=== PATIENT | male | born 2005 | race Caucasian/White ===

== ENCOUNTER 2025-01-30 14:56 | Emergency (ER) | payer SELFPAY ==
--- OUTSIDE RECORDS SUMMARY | 2025-01-27 15:15 | XMS_ITS | Continuity of Care Document ---
Author Organization [facility] Address [facility] [address] [place] [address]- Care Team Providers Care Career Development Counselor Name Role Phone Juvenal Sylvester Primary Care Physician Encounter(s) 01/27/25 [facility] [address] [place] [address]- [place] Attending Physician: Juvenal Sylvester Encounter Type: Outpatient 06/26/11 - 06/26/11 [facility] [address] [place] [address]- [place] Attending Physician: Juvenal Sylvester Encounter Type: Outpatient Social History Social History Type Response Sex Sex Representation Male (finding) Patient Care team information Care Team Personnel Name: Juvenal Sylvester Position: EMR Mid-Level Access (Supervised) Member Role: Primary Care Physician Address: [facility] [address] P: [place]: [place] [address]- HC Telecom: Insurance Providers Guarantor name: VANDANA Health Plan Information #: 1 Payer: [facility] - Insurance Organization Payer Identifier: NA Member Number: NA Group Number: NA Subscriber Identifier: NA Relationship to Subscriber: self Coverage Type: PRIVATE HEALTH INSURANCE Coverage Verification Date: VANDANA Telecom: VANDANA Address: NA
[2025-01-30 15:01] VITALS: BP 128/76; PULSE 92; RESP 16; TEMP 36.8; O2SAT 98; BMI 24.3
--- NOTE | 2025-01-30 15:06 | XRR_ITS ---
PROCEDURE INFORMATION: Exam: XR Chest Exam date and time: 01/30/2025 3:22 PM Age: 19 years old Clinical indication: Shortness of breath; Additional info: Cough, hard time breathing TECHNIQUE: Imaging protocol: Radiologic exam of the chest. Views: 1 view. COMPARISON: No relevant prior studies available. FINDINGS: Airway: Trachea is midline in position. Lungs: No focal consolidation or other acute appearing pulmonary opacity. Pleural spaces: No significant pleural effusion. No pneumothorax. Heart/Mediastinum: The heart size is normal. The mediastinal contours are smooth. Bones/joints: Very minimal scoliosis. Osseous structures are otherwise unremarkable. XR/XR chest 1V portable [id number] IMPRESSION: No acute findings within the chest.
--- NOTE | 2025-01-30 15:21 | XRR_ITS ---
PROCEDURE INFORMATION: Exam: XR Soft Tissue Neck Exam date and time: 01/30/2025 3:23 PM Age: 19 years old Clinical indication: Other: Cough; Additional info: Laryngospasms, coughing white phlegm TECHNIQUE: Imaging protocol: Radiologic exam of the soft tissues of the neck. COMPARISON: CR (CHEST, ) 01/30/2025 3:22 PM FINDINGS: Airway: There is mild fullness of the epiglottis which may correspond to changes of mild epiglottitis. Clinical correlation is recommended. Vallecula and piriform sinuses appear widely patent. Subglottic airway is patent. There does appear to be potential slight narrowing of the subglottic airway on the AP view. Soft tissues: No prevertebral soft tissue swelling. No opaque foreign body. Bones/joints: Osseous structures are unremarkable. Lungs: Visualized portion of the right and left lung are clear. Other findings: Heart size is normal. XR/XR soft tissue neck [id number] IMPRESSION: Mild enlargement of the epiglottis. There is question of slight narrowing of the subglottic airway. CT scan of the neck could be considered for further evaluation.
--- NOTE | 2025-01-30 15:32 | ED_ITS ---
HPI - URI/Sore Throat 2 General: Chief Complaint: Upper Respiratory Infection Stated Complaint: Hard time breath Coughing Time Seen by Provider: 01/30/25 15:08 Source: patient Mode of arrival: ambulatory Limitations: no limitations History of Present Illness: The patient is a 19-year-old male presenting to the emergency department with several days of intermittent coughing fits and sensation of throat closure that began after playing a dirty saxophone. States that he found the saxophone, which was his brothers, and did not clean it before using it. He notes that he was initially seen in urgent care due to onset of what he is calling laryngeal spasms, and was diagnosed with laryngitis and was treated with doxycycline and metronidazole, stating that he was told metronidazole to cover for fungal infections. Also has been using albuterol inhaler. He notes that his condition has gotten worse and coughing fits of gotten worse, as he will choke on his phlegm. He states that the phlegm has been very chunky and yellow/whitish in appearance. At this time he does not report any shortness of breath, but has notable dysphonia. He is not reporting any throat pain, fevers, chest pain, dysphagia, drooling, or true respiratory distress. He remains able to speak in full sentences and feels that his airway is patent at this time. He does not report any recent illness, sick contacts, or history of asthma. Oropharyngeal exam reportedly is normal. Lung sounds have been normal. No history of immunocompromise. His vitals are stable at this time, 98% SpO2 on room air. MD elicited complaint: cough and other (Throat spasms) Onset (ago): day(s) Consistency: constant and progressively worsening Description of mucous: yellow and other (White/chunky) Able to tolerate fluids by mouth: Yes Context: other (Played dirty saxophone) Associated symptoms: Deny abdominal pain, chills, chest pain, diarrhea, ear or mastoid pain, fever(s), headache(s), nausea or vomiting Related Data Previous Rx's ?Medication ?Instructions ?Recorded fluconazole 100 mg tablet 100 mg PO DAILY 14 days #14 tabs 01/30/25 methocarbamol 750 mg tablet 750 mg PO Q8H 5 days #15 t abs 01/30/25 prednisone 20 mg tablet 60 mg (3 x 20 mg) PO ONCE 5 days 01/30/25 #15 tabs Allergies Allergy/AdvReac Type Severity Reaction Status Date / Time peanut Allergy ALGY-Anaphy Verified 01/26/25 23:47 laxis Pork/Porcine Containing Allergy ALGY-Anaphy Verified 01/26/25 23:47 Products laxis shellfish derived Allergy ALGY-Anaphy Verified 01/26/25 23:47 laxis Review of Systems 2 General: Reports: 10 or more systems reviewed and unremarkable except in HPI and below Const: Denies: fever(s), chills or fatigue Eyes: Denies: change in vision ENMT: Reports: hoarseness and other (Sensation of throat closure); Denies: throat pain, ear or mastoid pain or nasal discharge Card: Denies: chest pain, palpitations, swelling of feet/ankles or lightheadedness Resp: Reports: productive cough; Denies: dyspnea, wheezing or hemoptysis GI: Denies: abdominal pain, nausea, vomiting, diarrhea or constipation : Denies: flank pain, difficulty urinating, dysuria or urinary frequency Musc: Denies: neck pain, back pain or joint pain Skin/Breast: Denies: rash Neuro: Denies: headache(s), numbness in extremities or weakness in extremities Physical Exam 2 Const: COMMON NORMALS: no acute distress and no limitations GENERAL APPEARANCE: cooperative, comfortable and well developed O RIENTATION/CONSCIOUSNESS: Yes awake OTHER: Nontoxic-appearing, no acute distress HENMT: COMMON NORMALS: normocephalic, atraumatic and hearing grossly normal bilaterally HEAD & SCALP: normocephalic and atraumatic THROAT: posterior oropharynx normal, tonsils normal and uvula midline Eye: COMMON NORMALS: Equal, round and reactive pupils present, EOMs intact bilaterally and conjunctivae normal CONJUNCTIVA: Yes conjunctivae normal P UPIL: Yes Equal, round and reactive pupils present Neck/C-Spine: COMMON NORMALS: full ROM, supple and no JVD Resp: COMMON NORMALS: normal respiratory effort, No retractions, No use of accessory muscles and clear to auscultation bilaterally EFFORT & INSPECTION: Yes able to speak in complete sentences AUSCULTATION: clear to auscultation bilaterally OTHER: No respiratory distress but obvious dysphonia, able to speak in complete sentences Cardio: COMMON NORMALS: no JVD, regular rate, regular rhythm, No clicks present (Cardio), No murmurs present (Cardio) and No rub (Cardio) RATE: r egular rate RHYTHM: regular rhythm Extremity: COMMON NORMALS: normal to inspection, full ROM and capillary refill normal Skin: COMMON NORMALS: no rashes or lesions noted GENERAL SKIN EXAM: no rashes or lesions noted Course 2 Vital Signs: Vital signs: Vital Signs Temperature 98.3 F 01/30/25 15:01 Pulse Rate 71 01/30/25 19:54 Respiratory Rate 16 01/30/25 15:01 Blood Pressure 126/84 01/30/25 19:54 Pulse Oximetry 95 01/30/25 19:54 Oxygen Delivery Me thod Nasal Cannula 01/30/25 19:54 MDM - URI/Sore Throat Medical Decision Making Patient presented for complaints of intermittent coughing episodes and sensation of throat closing. Of note he used a saxophone that he had found, without cleaning it, and concerned that possibly acquired fungal or bacterial infection. Symptoms began about a day after this occurred and he previously had seen urgent care last week where he was prescribed antibiotics, doxycycline, and metronidazole, and was told metronidazole was for a fungal infection. He has also been using inhaled albuterol and prednisone. On exam airway patent, notable dysphonia however no signs or symptoms of impending respiratory compromise. His vitals have been stable here at the ED course, and he has had intermittent episodes of coughing. Notable that the phlegm was chunky and white/yellow. Soft tissue neck x-ray showing mild enlargement of epiglottis but recommending CT scan for further evaluation of this. The CT did not show any signs of epiglottitis, but there was soft tissue enlargement that was causing a mild amount of airway narrowing. Otherwise lab workup normal. Working diagnosis is candidal laryngitis that he has been inadequately treated for, with his airway remaining patent, will refer outpatient ENT and no need for admission at this time. He will have his dose of prednisone increased as he was only taking 20 mg, he will take 60 mg. Also he is told to return with any new or worsening. Patient and mom agree with this plan at this time. Discharged home. Lab Data 01/30/25 15:31 01/30/25 15:31 Radiology Impressions Chest X-Ray 01/30/25 15:06 IMPRESSION: No acute findings within the chest. Soft Tissue Neck X-Ray 01/30/25 15:21 IMPRESSION: Mild enlargement of the epiglottis. There is question of slight narrowing of the subglottic airway. CT scan of the neck could be considered for further evaluation. ADDENDUM: 01/30/25 1604 COMMENT: THIS REPORT CONTAINS FINDINGS THAT MAY BE CRITICAL TO PATIENT CARE. The exam findings were verbally communicated by me to MARYCRUZ JARRELL via telephone conference at 4:02 PM [employer] INSPECTOR on 01/30/2025. The findings were acknowledged and understood. Neck CT 01/30/25 16:28 IMPRESSION: 1. There is slight asymmetric enlargement and slight enhancement of the soft tissues at the level of the mid glottis which slightly narrows the airway. The airway remains patent. Vocal cords appear symmetric. No focal fluid collection or abscess. No suspicious mass. Given patient's symptoms, ENT consultation and direct visualization is recommended. 3. Epiglottis appears normal. There is no enlargement of the epiglottis or evidence of epiglottitis. Laboratory Results WBC 12.12 10^3/uL (4.5-13.0) 01/30/25 15:31 RBC 5.49 10^6/uL (3.85-5.65) 01/30/25 15:31 Hgb 16.40 g/dL (13.2-15.6) H 01/30/25 15: Hct 48.6 % (37-53) 01/30/25 15: MCV 88.5 fl (82-101) 01/30/25 15: MCH 29.9 pg (27-33) 01/30/25 15: MCHC 33.7 g/dL (30-55) 01/30/25 15: RDW 11.9 % (12.1-15.1) L 01/30/25 15: Plt Count 315 10^3/cmm (157-399) 01/30/25 15: MPV 8.7 fL (7.4-10.4) 01/30/25 15: Neut % (Auto) 77.6 % 01/30/25 15: Lymph % (Auto) 13.4 % 01/30/25 15:31 [place] % (Auto) 8.3 % 01/30/25 15: Eos % (Auto) 0.1 % 01/30/25 15:31 Baso % (Auto) 0.1 % 01/30/25 15: Neut # (Auto) 9.41 10^3/uL (1.8-8.0) H 01/30/25 15: Lymph # (Auto) 1.6 10^3/uL (1.5-6.5) 01/30/25 15:31 [place] # (Auto) 1.0 10^3/uL (0.2-0.9) H 01/30/25 15: Eos # (Auto) 0.0 10^3/uL (0.0-0.8) 01/30/25 15: Baso # (Auto) 0.0 10^3/uL (0.0-0.1) 01/30/25 15: Nucleated RBC % (auto) 0 % 01/30/25 15: Nucleated RBCs # 0.0 /100WBC 01/30/25 15:31 Sodium 140 mmol/L (136-145) 01/30/25 15: Potassium 4.3 mmol/L (3.5-5.1) 01/30/25 15: Chloride 102 mmol/L (98-107) 01/30/25 15: Carbon Dioxide 25 mmol/L (22-29) 01/30/25 15:31 Anion Gap 17.3 (5-19) 01/30/25 15:31 BUN 12 mg/dL (6-20) 01/30/25 15: Creatinine 0.8 mg/dL (0.7-1.2) 01/30/25 15:31 GFR Calculation 124.5 mL/min (90-130) 01/30/25 15:31 Glucose 116 mg/dL (65-115) H 01/30/25 15:31 Calculated Osmolality 291 mOsm/kg (285-295) 01/30/25 15: Calcium 9.4 mg/dL (8.5-10.5) 01/30/25 15:31 Total Bilirubin 0.4 mg/dL (0.15-1.2) 01/30/25 15:31 AST 33 U/L (0-40) 01/30/25 15:31 ALT 22 U/L (0-41) 01/30/25 15:31 Alkaline Phosphatase 88 U/L (40-130) 01/30/25 15:31 Total Protein 8.0 g/dL (6.6-8.7) 01/30/25 15:31 Albumin 4.9 g/dL (3.5-5.2) 01/30/25 15:31 Globulin 3.1 g/dL (1.3-4.6) 01/30/25 15:31 All radiology interpretation(s) finalized by discharge Discharge Plan Discharge Patient Disposition: Home Clinical Impression: Gladis laryngitis Condition: Stable Prescriptions: New fluconazole 100 mg tablet 100 mg PO DAILY 14 Days Qty: 14 0RF methocarbamol 750 mg tablet 750 mg PO Q8H 5 Days Qty: 15 0RF prednisone 20 mg tablet 60 mg PO ONCE 5 Days Qty: 15 0RF Discharge Orders: Discharge ED (Routine); Ordered 01/30/25 Ordered By: Marycruz Jarrell Patient Instructions: Patient Portal & Ashley Instructions Activity Restrictions/Additional Instructions: Candidal Laryngitis Discharge You have been diagnosed with candidal laryngitis (a yeast infection of the voice box). You received a loading dose of fluconazole (Diflucan) in the emergency department and will continue treatment at home. Medication Instructions: - Take fluconazole 100 mg by mouth once daily for 2 weeks. You may take it with or without food. - You received a higher dose (200 mg) in the emergency department to start treatment. - Finish the entire course, even if you start feeling better, to prevent relapse. - Metronidazole and doxycycline have been stopped; do not take these unless directed otherwise. - Take the prednisone as prescribed. What to Expect: - Symptoms should begin to improve within several days, but continue medication for the full 2 weeks. - Mild side effects may include headache, stomach upset, or dizziness. If these are severe or persistent, contact your doctor. Precautions: - Do not drive or operate heavy machinery if you feel dizzy or have seizures. - If you have kidney problems, let your doctor know, as fluconazole may need adjustment. - Rarely, fluconazole can affect your adrenal glands. If you feel very weak, dizzy, or faint, seek medical attention. Strict Return Precautions: Return to the emergency department immediately if you experience: - Difficulty breathing, noisy breathing, or severe throat swelling - Trouble swallowing or drooling - High fever not improving - Severe pain or inability to speak - New rash, severe headache, or confusion Follow-Up: - If your symptoms do not improve or get worse after several days, you will be referred to an ear, nose, and throat (ENT) specialist for further evaluation. - Please return immediate to the emergency department with any acute worsening. Questions or Concerns: - Contact your healthcare provider if you have any questions about your medication or symptoms. Take all medications as directed and follow up as scheduled. Print Language: Azeri Coding Level of Care Code ED [employer]obotanist for Desiree York
[2025-01-30 15:36] LABS: Hematocrit 48.6 % (37-53); Hemoglobin 16.40 g/dL (13.2-15.6); Mean Corpuscular HGB Conc 33.7 g/dL (30-55); Mean Corpuscular Hemoglobin 29.9 pg (27-33); Mean Corpuscular Volume 88.5 fl (82-101); Nucleated Red Blood Cells % 0 %; Platelet Count 315 10^3/cmm (157-399); Red Blood Count 5.49 10^6/uL (3.85-5.65); White Blood Count 12.12 10^3/uL (4.5-13.0)
--- NOTE | 2025-01-30 16:28 | CTR_ITS ---
PROCEDURE INFORMATION: Exam: CT Neck With Contrast Exam date and time: 01/30/2025 5:01 PM Age: 19 years old Clinical indication: Lymphangitis, acute; Prior surgery; Surgery date: 6+ months; Surgery type: Tonsils and adenoids; Additional info: XR findings, cough, laryngospasms TECHNIQUE: Imaging protocol: Computed tomography of the neck with contrast. Radiation optimization: All CT scans at this facility use at least one of these dose optimization techniques: automated exposure control; mA and/or kV adjustment per patient size (includes targeted exams where dose is matched to clinical indication); or iterative reconstruction. Contrast material: OMNIPAQUE 350; Contrast volume: 80 ml; Contrast route: INTRAVENOUS (IV); COMPARISON: CR (NECK, ) 01/30/2025 3:23 PM RADIATION DOSE METRICS: Total DLP (mGy-cm): 254.99 FINDINGS: Brain: Visualized portion of the brain appears unremarkable. Prominent vascular structure extending anterior to the right temporal lobe more likely corresponds to a prominent draining vein. This is not well evaluated on this exam. Mastoid air cells: Mastoid air cells are clear. Salivary glands: Major salivary glands appear symmetric. Pharynx: Slight nodular appearance of the lingual tonsils. No evidence of acute tonsillitis. No focal fluid collection or mass. [place] tonsils appear symmetric. Vallecula and piriform sinuses are patent. Parapharyngeal fat planes are well preserved. There is fullness of the posterior nasopharyngeal soft tissues. No focal fluid collection or mass. Larynx: The epiglottis is normal in size. There is no enlargement of the epiglottis or evidence of epiglottitis. Thyroid: Normal. No enlarged or calcified nodules. Trachea: Trachea is midline in position and widely patent. Lungs: Visualized portion of the upper right and left lung are clear. Lymph nodes: No suspicious cervical chain lymphadenopathy. No enlarged or suspicious upper mediastinal lymph nodes. Vasculature: Carotid arteries are widely patent. Vertebral arteries are patent. Right and left jugular vein are patent. Bones/joints: Osseous structures are unremarkable. Mild mucosal thickening within the ethmoid air cells and within the inferior aspect of the left maxillary sinus. There are no fluid levels. Soft tissues: No neck mass. There is asymmetric enlargement and slight enhancement of the soft tissues at the level of the mid glottis which slightly narrows the airway. The airway remains patent. Vocal cords appear symmetric. No focal fluid collection or abscess. No suspicious mass. CT/CT neck w con* [id number] IMPRESSION: 1. There is slight asymmetric enlargement and slight enhancement of the soft tissues at the level of the mid glottis which slightly narrows the airway. The airway remains patent. Vocal cords appear symmetric. No focal fluid collection or abscess. No suspicious mass. Given patient's symptoms, ENT consultation and direct visualization is recommended. 3. Epiglottis appears normal. There is no enlargement of the epiglottis or evidence of epiglottitis.
[2025-01-30 16:54] LABS: Alanine Aminotransferase 22 U/L (0-41); Albumin Level 4.9 g/dL (3.5-5.2); Alkaline Phosphatase 88 U/L (40-130); Anion Gap 17.3 (5-19); Aspartate Amino Transferase 33 U/L (0-40); Blood Urea Nitrogen 12 mg/dL (6-20); Calcium 9.4 mg/dL (8.5-10.5); Carbon Dioxide 25 mmol/L (22-29); Chloride 102 mmol/L (98-107); Creatinine Clr Calc Pharmacy 147.1957; Globulin 3.1 g/dL (1.3-4.6); Glucose 116 mg/dL (65-115); Osmolality Calculated 291 mOsm/kg (285-295); Potassium 4.3 mmol/L (3.5-5.1); Sodium 140 mmol/L (136-145); Total Protein 8.0 g/dL (6.6-8.7)
[2025-01-30] MEDS: iohexol 350 mg/mL 500 mL Btl (per mL) IV (17:09)
[2025-01-30] MEDS: orphenadrine 30 mg/mL Inj 2 mL 60 MG IVP (18:35)
[2025-01-30 18:39] VITALS: BP 151/90; PULSE 70; O2SAT 99
[2025-01-30 19:54] VITALS: BP 126/84; PULSE 71; O2SAT 95
== END 2025-01-30 19:56 | disposition home or self-care (01) ==
PROVIDERS: Emergency Provider Physician Assistant
DX: J04.0 Acute laryngitis (principal)
CPT/HCPCS: 36415; 70360; 70491; 71045; 80053; 85025; 87070; 96374; 96376; 99285; J1100; J2360; J9999

== ENCOUNTER 2025-01-31 21:40 | Emergency (ER) | payer SELFPAY ==
--- OUTSIDE RECORDS SUMMARY | 2025-01-29 23:59 | XMS_ITS | Continuity of Care Document ---
Author Organization [facility] Address [facility] [address] [place] [address]- Care Team Providers Care Auxiliary Engineer Name Role Phone Juvenal Sylvester Primary Care Physician Encounter 01/27/25 - 01/29/25 [facility] [address] [facility] [address] [place] [address]- Encounter Diagnosis Productive cough(Discharge Diagnosis) - 01/27/25 CAP (community acquired pneumonia)(Discharge Diagnosis) - 01/27/25 Attending Physician: Juvenal Sylvester Encounter Type: Outpatient Allergies, Adverse Reactions, Alerts No Known Medication Allergies Substance Criticality Severity Reaction Reaction Severity Status Peanuts Unable to assess criticality High Swelling of throat Active Treatment Plan Extracted from: Title:CAP; productive cough Author:Juvenal Sylvester Date:01/27/25 1. Productive cough (R05.8: Other specified cough) based on pt symptoms and Hx I believe treating for possible pneumonia is appropriate at this time and they are agreeable. Pt receives IM dexamethasone in office to help control congestive symptos and protect his airway and this is well tolerated. he will start course of Doxycycline and metronidazole in order to allow a broad spectrum of coverage. Red flag symptoms are thoroughly discussed. all questions answered. pt may follow up as needed. Ordered: dexamethasone, 8 mg, Intramuscular, once, (Ordered) doxycycline(doxycycline hyclate 100 mg oral tablet), 100 mg= 1 tab(s), Oral, bid, (Ordered) metroNIDAZOLE(metroNIDAZOLE 500 mg oral tablet), 500 mg= 1 tab(s), Oral, bid, (Ordered) predniSONE(predniSONE 20 mg oral tablet), 40 mg= 2 tab(s), Oral, daily, (Ordered) [id number] office o/p new low meets or exceeds 30min (Charge), Quantity: 1, Productive cough CAP (community acquired pneumonia) 2. CAP (community acquired pneumonia) (J18.9: Pneumonia, unspecified organism) as above Ordered: dexamethasone, 8 mg, Intramuscular, once, (Ordered) doxycycline(doxycycline hyclate 100 mg oral tablet), 100 mg= 1 tab(s), Oral, bid, (Ordered) metroNIDAZOLE(metroNIDAZOLE 500 mg oral tablet), 500 mg= 1 tab(s), Oral, bid, (Ordered) predniSONE(predniSONE 20 mg oral tablet), 40 mg= 2 tab(s), Oral, daily, (Ordered) [id number] office o/p new low meets or exceeds 30min (Charge), Quantity: 1, Productive cough CAP (community acquired pneumonia) Medications doxycycline hyclate 100 mg oral tablet = 1 tab(s) ( 100 mg ), Oral, bid, x 7 day(s), # 14 tab(s), 0 Refill(s), Type: Acute, Pharmacy: [facility], 1 tab(s) Oral bid,x7 day(s), , in, 01/27/25 15:20:00 [employer], Height Measured, 162, lb, 01/27/25 15:20:00 [employer], Weight Measured Start Date: 01/27/25 Stop Date: 02/03/25 Status: Ordered Medication Dispense Status: Completed Quantity: 14.0 Unit: tab(s) Total Allowed Fills: 1 Fills Dispensed: 0 Indications: Pneumonia, unspecified organism; Other specified cough; metroNIDAZOLE 500 mg oral tablet = 1 tab(s) ( 500 mg ), Oral, bid, x 7 day(s), # 14 tab(s), 0 Refill(s), Type: Acute, Pharmacy: [facility], 1 tab(s) Oral bid,x7 day(s), , in, 01/27/25 15:20:00 [employer], Height Measured, 162, lb, 01/27/25 15:20:00 [employer], Weight Measured Start Date: 01/27/25 Stop Date: 02/03/25 Status: Ordered Medication Dispense Status: Completed Quantity: 14.0 Unit: tab(s) Total Allowed Fills: 1 Fills Dispensed: 0 Indications: Pneumonia, unspecified organism; Other specified cough; predniSONE 20 mg oral tablet = 2 tab(s) ( 40 mg ), Oral, daily, x 5 day(s), Instructions: take daily in the morning, # 10 tab(s), 0 Refill(s), Type: Acute, Pharmacy: [facility], 2 tab(s) Oral daily,x5 day(s),Instr:take daily in the morning, 68, in, 01/27/25 15:20:00 [employer], Height Measured, 162, lb, 01/27/25 15:20:00 [employer], Weight Measured Start Date: 01/27/25 Stop Date: 02/01/25 Status: Ordered Medication Dispense Status: Completed Quantity: 10.0 Unit: tab(s) Total Allowed Fills: 1 Fills Dispensed: 0 Indications: Pneumonia, unspecified organism; Other specified cough; Problem List Diagnosis Diagnosis Type Effective Dates Health Status Clinical Service Informant Productive cough Discharge Diagnosis 01/27/25 Non-Specified CAP (community acquired pneumonia) Discharge Diagnosis 01/27/25 Non-Specified Vital Signs Most recent to oldest [Reference Range]: 1 Height Measured 68 in (01/27/25 3:20 PM) Weight Measured 162 lb (01/27/25 3:20 PM) Body Mass Index 24.63 kg/m2 (01/27/25 3:20 PM) BSA 1.88 m2 (01/27/25 3:20 PM) Temperature Temporal [97.3-100 DegF] 97. 8 DegF (01/27/25 3:20 PM) Blood Pressure [90-120/60-80 mmHg] 140/8 2mmHg *HI* (01/27/25 3:20 PM) Mean Arterial Pressure 101 mmHg (01/27/25 3:20 PM) Peripheral Pulse Rate [60-100 bpm] 98 bp m (01/27/25 3:20 PM) SpO2 [95 %] 98 % (01/27/25 3:20 PM) Body Mass Index Z-score 0.61 1 (01/27/25 3:20 PM) Body Mass Index Percentile [0-0 %] 73.06 % 2 (01/27/25 3:20 PM) 1Result Comment: ^~:!ZScore Source - CDC 2Result Comment: ^~:!Percentile Source - CDC Social History Social History Type Response Sex Sex Representation Male (finding) Physician Outpatient Note * Juvenal Sylvester: PERFORM Event Display: General Clinic Note (Physician) Authored Date: [id number] Presley Siegel Address: [address] [place] [address] Home Phone:[phone] Sex:Male :2005 [facility] Date [facility] Service:01/27/2025 Chief Complaint cough starting ab a wk ago, then started coughing up flem (very thick and brown), cough became bad enough nose would start bleeding, throat has been closing for ab40 seconds at a time during that time he came breath at all, History of Present Illness Pt presents today w mom present. They state pt has ongoing cough for a little more than a week now which has become very productive of dark yellow and green sputum. At ties he has coughed??hard enough to trigger nose bleeding, has become very hoarse now??and has also experienced what they believe is laryngal spasm which causes a sensation of his throat closing . during these spasms he states he has had a great deal of difficulty breathing and these episodes seem very random and typically last 30-45??seconds or so. No known fevers. They state this all began a couple of days after he got out an old saxophone??and began trying to play it again, and they are concerned he may have contacted latent bacteria or possibly mold from this.?? Review of Systems Constitutional:??no??fever,??no??chills,??no??sweats,??no??weakness Respiratory:??moderate??shortness of breath,??severe??cough Cardiovascular:??no??chest pain Additional ROS info: Except as noted in the above Review of Systems and in the History of Present Illness all other systems have been reviewed and are negative or noncontributory.?? Physical Exam Vitals & Measurements T:??97.8?F??(Temporal Artery)?? HR:??98??(Peripheral)?? BP:??140/82?? SpO2:??98%?? HT:??68??in?? WT:??162??lb?? BMI:??24.63?? General:??alert,??no acute distress. Cardiovascular:??regular??rate and rhythm,??normal??peripheral perfusion. Respiratory: Lungs??CTA, respirations??non-labored. HENT: head is normocephalic w no lymphadenopathy noted; TMs intact and nonerythematous; oropharynx w PND present?? Extremities:??no??deformity,??no??trauma. Neurological:??oriented??x4, LOC??appropriate for age Assessment/Plan 1.??Productive cough (R05.8: Other specified cough) based on pt symptoms and Hx??I believe treating for??possible pneumonia is??appropriate??at this time and??they are agreeable. Pt receives IM dexamethasone in office to help control congestive symptos and protect his airway and this is well tolerated. he will start course of Doxycycline and metronidazole in order to allow a broad spectrum of coverage. Red flag symptoms are thoroughly discussed. all questions answered. pt may follow up as needed.?? Ordered: dexamethasone, 8 mg, Intramuscular, once, (Ordered) doxycycline(doxycycline hyclate 100 mg oral tablet), 100 mg= 1 tab(s), Oral, bid, (Ordered) metroNIDAZOLE(metroNIDAZOLE 500 mg oral tablet), 500 mg= 1 tab(s), Oral, bid, (Ordered) predniSONE(predniSONE 20 mg oral tablet), 40 mg= 2 tab(s), Oral, daily, (Ordered) [id number] office o/p new low meets or exceeds 30min (Charge), Quantity: 1, Productive cough CAP (community acquired pneumonia) ?? 2.??CAP (community acquired pneumonia) (J18.9: Pneumonia, unspecified organism) as above?? Ordered: dexamethasone, 8 mg, Intramuscular, once, (Ordered) doxycycline(doxycycline hyclate 100 mg oral tablet), 100 mg= 1 tab(s), Oral, bid, (Ordered) metroNIDAZOLE(metroNIDAZOLE 500 mg oral tablet), 500 mg= 1 tab(s), Oral, bid, (Ordered) predniSONE(predniSONE 20 mg oral tablet), 40 mg= 2 tab(s), Oral, daily, (Ordered) 12158 office o/p new low meets or exceeds 30min (Charge), Quantity: 1, Productive cough CAP (community acquired pneumonia) ?? PCP/Referring Provider Primary Care Provider (PCP):?Juvenal Sylvester ?NPI# [id number] Referring Provider:?No referring provider recorded for selected visit. Medications dexamethasone, 8 mg, Intramuscular, once doxycycline(doxycycline hyclate 100 mg oral tablet), 100 mg= 1 tab(s), Oral, bid metroNIDAZOLE(metroNIDAZOLE 500 mg oral tablet), 500 mg= 1 tab(s), Oral, bid predniSONE(predniSONE 20 mg oral tablet), 40 mg= 2 tab(s), Oral, daily Allergies Peanuts (High)??Swelling of throat No Known Medication Allergies Electronically Signed on 01/27/25 04:23 PM Juvenal Sylvester Patient Care team information Care Team Personnel Name: Juvenal Sylvester Position: EMR Mid-Level Access (Supervised) Member Role: Primary Care Physician Address: [facility] [address] [place] [address] P: F: [place] [address] Telecom: Insurance Providers Guarantor name: VANDANA Health Plan Information #: 1 Payer: [facility] - Insurance Organization Payer Identifier: VANDANA Member Number: VANDANA Group Number: VANDANA Subscriber Identifier: VANDANA Relationship to Subscriber: self Coverage Type: PRIVATE HEALTH INSURANCE Coverage Verification Date: VANDANA Telecom: VANDANA Address: [place]
[2025-01-31 21:45] VITALS: BP 169/108; PULSE 107; RESP 22; TEMP 36.8; O2SAT 97; BMI 24.3
[2025-01-31] MEDS: methylPREDNISolone sod succ 125 mg/2 mL INJ IVP (21:58)
[2025-01-31] MEDS: diphenhydrAMINE 50 mg/mL SDV 1mL IVP (21:58)
[2025-01-31 22:02] VITALS: BP 169/93; PULSE 109; RESP 36; O2SAT 100
--- NOTE | 2025-01-31 22:06 | XRR_ITS ---
PROCEDURE INFORMATION: Exam: XR Chest Exam date and time: 01/31/2025 10:16 PM Age: 19 years old Clinical indication: Shortness of breath; SOB with stridor TECHNIQUE: Imaging protocol: Radiologic exam of the chest. Views: 1 view. COMPARISON: CR (CHEST, ) 01/30/2025 3:22 PM FINDINGS: Lungs: Unremarkable. No consolidation. Pleural spaces: Unremarkable. No pleural effusion. No pneumothorax. Heart/Mediastinum: Unremarkable. No cardiomegaly. Bones/joints: Unremarkable. XR/XR chest 1V portable [id number] IMPRESSION: No acute findings.
--- NOTE | 2025-01-31 22:06 | XRR_ITS ---
PROCEDURE INFORMATION: Exam: XR Soft Tissue Neck Exam date and time: 01/31/2025 10:07 PM Age: 19 years old Clinical indication: Other: Sob/stridor; Prior surgery; Surgery date: 6+ months; Surgery type: Tonsil/adnenoidectomy; SOB with stridor; Additional info: SOB, stridor TECHNIQUE: Imaging protocol: Radiologic exam of the soft tissues of the neck. COMPARISON: CT neck w con* [id number] 01/30/2025 5:01 PM FINDINGS: Airway: The epiglottis is normal. Soft tissues: The nasopharynx and oropharynx are patent. There is subtle soft tissue attenuation of the level of the glottis, which may correspond to previously described asymmetric soft tissue thickening/enhancement on same day CT neck. No substantial hypopharyngeal distension is noted. Prevertebral soft tissues are within normal limits. Bones/joints: Unremarkable. XR/XR soft tissue neck [id number] IMPRESSION: Suggested mild soft tissue thickening at the mid/subglottic level, which may correspond to same day CT neck findings. Findings are nonspecific. Croup could be considered. Please refer to separately dictated CT neck for further characterization.
[2025-01-31 22:08] VITALS: PULSE 117; RESP 26; O2SAT 98
[2025-01-31 22:24] LABS: Hematocrit 51.4 % (37-53); Hemoglobin 17.50 g/dL (13.2-15.6); Mean Corpuscular HGB Conc 34.0 g/dL (30-55); Mean Corpuscular Hemoglobin 30.1 pg (27-33); Mean Corpuscular Volume 88.3 fl (82-101); Nucleated Red Blood Cells % 0 %; Platelet Count 370 10^3/cmm (157-399); Red Blood Count 5.82 10^6/uL (3.85-5.65); White Blood Count 22.45 10^3/uL (4.5-13.0)
[2025-01-31 22:37] LABS: INR 1.04 (0.8-1.2); Prothrombin Time 14.30 SECONDS (12.1-14.9)
[2025-01-31 22:38] LABS: Partial Thromboplastin Time 27.3 SECONDS (23.9-36.7)
[2025-01-31 22:43] LABS: Lactic Sepsis W/Reflex 3.7 mmol/L (0.5-2.2)
[2025-01-31 22:44] LABS: Alanine Aminotransferase 23 U/L (0-41); Albumin Level 5.0 g/dL (3.5-5.2); Alkaline Phosphatase 91 U/L (40-130); Anion Gap 20.2 (5-19); Aspartate Amino Transferase 28 U/L (0-40); Blood Urea Nitrogen 15 mg/dL (6-20); Calcium 9.6 mg/dL (8.5-10.5); Carbon Dioxide 22 mmol/L (22-29); Chloride 99 mmol/L (98-107); Creatinine Clr Calc Pharmacy 147.1957; Globulin 3.2 g/dL (1.3-4.6); Glucose 136 mg/dL (65-115); Osmolality Calculated 289 mOsm/kg (285-295); Potassium 3.2 mmol/L (3.5-5.1); Sodium 138 mmol/L (136-145); Total Protein 8.2 g/dL (6.6-8.7)
[2025-01-31 23:03] VITALS: BP 139/74; O2SAT 96
[2025-02-01] VITALS (10 sets, daily range): BP systolic 113–156; BP diastolic 68–100; PULSE 52–84; O2SAT 92–98
--- NOTE | 2025-02-01 01:13 | W.ED.SOB ---
HPI - SOB/Dyspnea General: Chief Complaint: Airway/Esophagus Foreign Body Stated Complaint: Spasms in throat, trouble breathing severe Time Seen by Provider: 01/31/25 21:54 History of Present Illness: HPI Narrative: 19-year-old male patient. This is his third visit to the emergency department. He continues to have problems with spasms and a feeling of swelling and tightening of his throat, with stridor intermittently. It seems to be worse tonight and last night when he presented to the emergency department. There is a loose history of using an old saxophone that had not been cleaned. Symptoms originally started around 9 or 10 days ago following this. He has been on doxycycline, metronidazole, and steroids. Last night, antifungals were started as well as methocarbamol for a muscle relaxant. He has used albuterol without relief. He has continued steroids without relief. He has not had itching. There are no other irritants such as new medications, new foods, new detergents, etc. No recent tick or other insect bites. No fever. Related Data Previous Rx's ?Medication ?Instructions ?Recorded fluconazole 100 mg tablet 100 mg PO DAILY 14 days #14 tabs 01/30/25 methocarbamol 750 mg tablet 750 mg PO Q8H 5 days #15 tabs 01/30/25 prednisone 20 mg tablet 60 mg (3 x 20 mg) PO ONCE 5 days 01/30/25 #15 tabs Allergies Allergy/AdvReac Type Severity Reaction Status Date / Time peanut Allergy ALGY-Anaphy Verified 01/26/25 23:47 laxis Pork/Porcine Containing Allergy ALGY-Anaphy Verified 01/26/25 23:47 Products laxis shellfish derived Allergy ALGY-Anaphy Verified 01/26/25 23:47 laxis Physical Exam Const: COMMON NORMALS: patient oriented x3 GENERAL APPEARANCE: cooperative, in distress, anxious and ill appearing HENMT: COMMON NORMALS: normocephalic and atraumatic HEAD & SCALP: normocephalic and atraumatic FACE & SINUS: face symmetric and edema (Minimal) NOSE: Epistaxis present on the right anterior source Eye: COMMON NORMALS: Equal, round and reactive pupils present and EOMs intact bilaterally PUPIL: Yes Equal, round and reactive pupils present Resp: EFFORT & INSPECTION: Yes symmetric chest movement, Yes tachypneic, Yes respiratory distress, Yes labored, Yes stridor and Yes Actively coughing Cardio: COMMON NORMALS: regular rhythm RATE: tachycardic RHYTHM: regular rhythm GI: COMMON NORMALS: Normal to inspection, nondistended, normoactive bowel sounds present, Soft to palpation and non-tender PALPATION: Yes Soft to palpation Extremity: COMMON NORMALS: capillary refill normal and no pedal edema Neuro: KATHERINE COMA SCALE: document GCS findings Katherine coma scale eye opening: Spontaneous Katherine coma scale verbal response: Orientated [place] coma scale motor response: [place] commands Katherine coma scale total score: 15 COMMON NORMALS: patient oriented x3 and moves all extremities Skin: COMMON NORMALS: no rashes or lesions noted GENERAL SKIN EXAM: no rashes or lesions noted Course Vital Signs: Vital signs: Vital Signs Temperature 98.2 F 01/31/25 21:45 Pulse Rate 117 H 01/31/25 22:08 Respiratory Rate 26 H 01/31/25 22:08 Blood Pressure 155/95 02/01/25 01:36 Pulse Oximetry 95 02/01/25 01:36 Oxygen Delivery Me thod Room Air 02/01/25 01:36 MDM - SOB/Dyspnea Medical Decision Making Initially, the patient was exhibiting significant stridor, and shortness of breath. Medications were ordered. Benadryl, Solu-Medrol, epinephrine were ordered. Racemic epinephrine was also ordered, but the patient started coughing worse upon administration of nebulizer, so it was discontinued. He also had an episode of epistaxis when starting the nebulizer treatment. Epistaxis was from the right side, and is resolved quickly. His white blood cell count is 22.5, likely due to steroid use. Hemoglobin is 17.5. Potassium is 3.2. His chest x-ray is negative. His soft tissue neck x-ray shows mild soft tissue thickening at the mid subglottic level which corresponds to previous CT done 24 hours or so ago. His lactic acid is mildly elevated at 3.7. His other laboratory is negative. He responded well to epinephrine, Solu-Medrol, and Benadryl. As this is his third presentation to the emergency room, and fifth time seeking health care related to his airway, ENT was consulted. He has no further recommendations other than continued steroids. He agrees that it is strange that the stridor is recurrent and intermittent. He agrees to see the patient in consultation if the patient is transferred medically. Hospitalist at [facility] has agreed to admit the patient. He will go by ambulance. There is risk of rebound airway compromise after administration of epinephrine, so ACLS is suggested. We have a room number. He is stable for transport at this point. Lab Data 01/31/25 22:13 01/31/25 22:13 Labs/Radiology: Radiology Impressions Chest X-Ray 01/31/25 22:06 IMPRESSION: No acute findings. Soft Tissue Neck X-Ray 01/31/25 22:06 IMPRESSION: Suggested mild soft tissue thickening at the mid/subglottic level, which may correspond to same day CT neck findings. Findings are nonspecific. Croup could be considered. Please refer to separately dictated CT neck for further characterization. Laboratory Results WBC 22.45 10^3/uL (4.5-13.0) H 01/31/25 22:13 RBC 5.82 10^6/uL (3.85-5.65) H 01/31/25 22:13 Hgb 17.50 g/dL (13.2-15.6) H 01/31/25 22:13 Hct 51.4 % (37-53) 01/31/25 22:13 MCV 88.3 fl (82-101) 01/31/25 22:13 MCH 30.1 pg (27-33) 01/31/25 22:13 MCHC 34.0 g/dL (30-55) 01/31/25 22:13 RDW 11.9 % (12.1-15.1) L 01/31/25 22:13 Plt Count 370 10^3/cmm (157-399) 01/31/25 22:13 MPV 8.7 fL (7.4-10.4) 01/31/25 22:13 Neut % (Auto) 68.0 % 01/31/25 22:13 Lymph % (Auto) 20.2 % 01/31/25 22:13 [place] % (Auto) 10.8 % 01/31/25 22:13 Eos % (Auto) 0.1 % 01/31/25 22:13 Baso % (Auto) 0.2 % 01/31/25 22:13 Neut # (Auto) 15.27 10^3/uL (1.8-8.0) H 01/31/25 22:13 Lymph # (Auto) 4.5 10^3/uL (1.5-6.5) 01/31/25 22:13 [place] # (Auto) 2.4 10^3/uL (0.2-0.9) H 01/31/25 22:13 Eos # (Auto) 0.0 10^3/uL (0.0-0.8) 01/31/25 22:13 Baso # (Auto) 0.0 10^3/uL (0.0-0.1) 01/31/25 22:13 Nucleated RBC % (auto) 0 % 01/31/25 22:13 Nucleated RBCs # 0.0 /100WBC 01/31/25 22:13 PT 14.30 SECONDS (12.1-14.9) 01/31/25 22:13 INR 1.04 (0.8-1.2) 01/31/25 22:13 APTT 27.3 SECONDS (23.9-36.7) 01/31/25 22:13 Sodium 138 mmol/L (136-145) 01/31/25 22:13 Potassium 3.2 mmol/L (3.5-5.1) L 01/31/25 22:13 Chloride 99 mmol/L (98-107) 01/31/25 22:13 Carbon Dioxide 22 mmol/L (22-29) 01/31/25 22:13 Anion Gap 20.2 (5-19) H 01/31/25 22:13 BUN 15 mg/dL (6-20) 01/31/25 22:13 Creatinine 0.8 mg/dL (0.7-1.2) 01/31/25 22:13 GFR Calculation 124.5 mL/min (90-130) 01/31/25 22:13 Glucose 136 mg/dL (65-115) H 01/31/25 22:13 Calculated Osmolality 289 mOsm/kg (285-295) 01/31/25 22:13 Lactic Acid 3.7 mmol/L (0.5-2.2) H 01/31/25 22:13 Lactic Acid (Sepsis) 1.6 mmol/L (0.5-2.2) 02/01/25 02:12 Calcium 9.6 mg/dL (8.5-10.5) 01/31/25 22:13 Total Bilirubin 0.6 mg/dL (0.15-1.2) 01/31/25 22:13 AST 28 U/L (0-40) 01/31/25 22:13 ALT 23 U/L (0-41) 01/31/25 22:13 Alkaline Phosphatase 91 U/L (40-130) 01/31/25 22:13 C-Reactive Protein 3.0 mg/L (0.0-4.9) 01/31/25 22:13 Total Protein 8.2 g/dL (6.6-8.7) 01/31/25 22:13 Albumin 5.0 g/dL (3.5-5.2) 01/31/25 22:13 Globulin 3.2 g/dL (1.3-4.6) 01/31/25 22:13 All radiology interpretation(s) finalized by discharge Critical Care Time Critical Care Time: Critical Care Time: Yes Total Critical Care Time: 35 Attestation: This case had a high probability of a clinically significant, sudden, or life threatening deterioration of this patient's condition which required my full and direct attention, intervention and personal management. Time is independent of any procedures performed. Discharge Plan Discharge Patient Disposition: Xfer Short-Term Hosp Clinical Impression: Glottic edema, Inspiratory stridor Condition: Stable Print Language: Citizen [place] Coding Level of Care Code ED Family And Marriage Counsellor for Desiree [place]
[2025-02-01 02:07] LABS: Reflex Lactate Order REFLEX LACTIC ORDERD
[2025-02-01 02:51] LABS: Lactic Acid level (Lactate) 1.6 mmol/L (0.5-2.2)
[2025-02-01] MEDS: diphenhydrAMINE 50 mg/mL SDV 1mL 25 MG IVP (06:20)
== END 2025-02-01 08:45 | disposition short-term general hospital (02) ==
PROVIDERS: Emergency Provider Emergency Medicine
DX: J38.4 Edema of larynx (principal)
CPT/HCPCS: 36415; 70360; 71045; 80053; 83605; 85025; 85610; 85730; 86140; 94640; 96372; 96374; 96375; 96376; 99284; 99291; J0169; J1200; J2919; J3490; J9999